=== PATIENT | male | born 1995 | race African-American/Black ===

== ENCOUNTER 2018-10-19 16:58 | Emergency (ER) | payer SELFPAY ==
[2018-10-19] MEDS ORDERED: Acetaminophen 500 MG TAB ONE (17:17)
[2018-10-19] MEDS ORDERED: Dexamethasone 10 MG/ML VIAL ONE (19:11)
== END 2018-10-19 19:17 | disposition home or self-care (01) ==
LOC: ERS 16:58
DX: J03.90 Acute tonsillitis, unspecified (principal)
CPT/HCPCS: 87081; 87430; 99283; J1100

== ENCOUNTER 2018-12-27 17:39 | Emergency (ER) | payer SELFPAY ==
[2018-12-27] MEDS ORDERED: HYDROcodone/Acetaminophen 10/325 mg Tablet ONE (18:17)
[2018-12-27] MEDS ORDERED: Adacel (T-DAP) 0.5 ML SYRINGE ONE (18:18)
--- NOTE | 2018-12-27 18:59 | RAD ---
RIGHT KNEE: 12/27/18 Four views. HISTORY: Injury. No fracture. No joint effusion. IMPRESSION: No acute findings. POS: [facility]
--- NOTE | 2018-12-27 18:59 | RAD ---
LEFT KNEE: 12/27/18 Four views. HISTORY: Injury. No fracture. No osseous abnormality. No evidence of joint effusion. IMPRESSION: No acute findings. POS: [facility]
== END 2018-12-27 19:25 | disposition home or self-care (01) ==
LOC: ERS 17:39
DX: S81.012A Laceration without foreign body, left knee, initial encounter (principal); S81.011A Laceration without foreign body, right knee, initial encounter; W22.8XXA Striking against or struck by other objects, initial encounter
CPT/HCPCS: 12001; 90471; 90715